=== PATIENT | female | born 1995 | race Caucasian/White ===

== ENCOUNTER 2022-10-17 12:05 | Emergency (ER) | payer OTHER, SELFPAY ==
[2022-10-17] VITALS (10 sets, daily range): BP systolic 143; BP diastolic 97; PULSE 89–100; RESP 10–30; TEMP 36.7; O2SAT 96–100; BMI 29.5
--- NOTE | 2022-10-17 12:18 | ED_ITS ---
HPI - Seizure General Chief Complaint: Seizure Stated Complaint: SEIZURE @ WORK Time Seen by Provider: 10/17/22 12:10 Source: patient Mode of arrival: ambulance Limitations: no limitations History of Present Illness HPI Narrative: patient was brought to the emergency room from her place of employment. Coworkers described seizure type activity. She was incontinent of urine there. She has no recall of the event. She doesn't remember going to work today and his struggles trying to remember what she did yesterday or even over the weekend. She does remember October 10 celebration. She does not have a family doctor. She states her works at a local [employer]. She takes something [id number] from [employer] for gas and bloating but is otherwise not on any medications that she knows of. She does not have a headache. Does not having neck pain. 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 She has no other medical problems or history that she can relate to us at this [facility]. Related Data Home Medications Medication Instructions Recorded Confirmed No Known Home Medications 10/17/22 10/17/22 Allergies Allergy/AdvReac Type Severity Reaction Status Date / Time No Known Drug Allergies Allergy Verified 10/17/22 12:12 [facility] Social History Smoking status: Current some day smoker Exam Narrative Exam Narrative: patient awake, sluggish to answer questions. Does not remember any events leading up to her going to work today. Was even sluggish about events over the last forty-eight hours. She follows all simple commands. HEENT shows head and neck to be atraumatic with no tenderness over the cervical spine. She protrudes the tongue in the midline but she has an abrasion on the front right side of the tongue consistent with traumatic biting event. Otherwise eyes ears nose and throat are normal no CSF otorrhea or rhinorrhea. I examination shows no nystagmus extraocular muscles are normal is no conjunctivitis. Chest wall is nontender as are ribs and sternum and clavicular area. Arrest during her lungs are clear no wheezes rales or rhonchi heart sounds are normal and lungs are clear with normal pulse oximetry airway was intact with no evidence of aspiration or airway obstruction. Neurological examination shows her to be moving all four extremities spontaneously. Cranial nerves II-12 are normal. There is no evidence of meningeal irritation or meningismus. No head or neck trauma. Her amnesia was described earlier. That did improve throughout her stay here and when her came in she was doing much better as far as events prior to today's seizure. Constitutional Vital Signs, click to edit/add: Last Vital Signs Temp 98.0 F 10/17/22 12:12 Pulse 100 H 10/17/22 12:12 Resp 18 10/17/22 12:12 BP 143/97 H 10/17/22 12:12 Pulse Ox 98 10/17/22 12:12 O2 Del Method Room Air 10/17/22 12:12 Course Vital Signs Vital signs: Vital Signs Temperature 98.0 F 10/17/22 12:12 Pulse Rate 100 H 10/17/22 12:12 Respiratory Rate 18 10/17/22 12:12 Blood Pressure 143/97 H 10/17/22 12:12 Pulse Oximetry 98 10/17/22 12:12 Oxygen Delivery Method Room Air 10/17/22 12:12 Temperature 98.0 F 10/17/22 12:12 Pulse Rate 100 H 10/17/22 12:12 Respiratory Rate 18 10/17/22 12:12 Blood Pressure 143/97 H 10/17/22 12:12 Pulse Oximetry 98 10/17/22 12:12 Oxygen Delivery Method Room Air 10/17/22 12:12 MDM - Seizure MDM Narrative Medical decision making narrative: patient's laboratory test shows elevated lactate levels consistent with a full-b lown grand mal seizure. Her CT scan of the head is normal. Basic chemistries are otherwise unremarkable. She does not have a primary care doctor and does not know her insurance because her purses at her place of employment nonetheless we'll call [facility] and arrange prompt follow-up 1st seizure workup for her. She's not to drive, this was explained to the and the patient and they are in agreement. She'll be given a work note for the next two days. Close observation by the Discharge Plan Discharge Chief Complaint: Seizure Clinical Impression: Generalized seizure Patient Disposition: Home, Self-Care Time of Disposition Decision: 13:30 Prescriptions / Home Meds: No Action No Known Home Medications Additional Instructions: do not drive or engage in any risk activity as discussed. Call [facility] for close follow-up. Off work today and tomorrow and try to find a family doctor for ongoing care as well Stand Alone Forms: Portal Instructions Referrals: DENNISE FOSTER [Primary Care Provider] - 1 week
--- NOTE | 2022-10-17 12:19 | ECG_ITS ---
[facility] Test Date: 2022-10-17 Pat Name: MELINA WILSON Department: Room: - Gender: Female Economic Consultant: : 1995 Requested By: [id number] Order Number: [id number] Reading MD: EVARISTO LECHUGA Measurements Intervals [place] Rate: 103 P: 55 ND: 150 QRS: 97 QRSD: 82 T: 42 QT: 340 QTc: 400 Interpretive Statements 1120 Sinus tachycardia 4068 Nonspecific Twave abnormality 7102 Moderate right axis deviation 9140 abnormal rhythm ECG No previous ECG available for comparison Electronically Signed On 10-18-2022 6:32:35 EDT by EVARISTO LECHUGA
[2022-10-17 12:32] LABS: Basophils Percent Auto 0.3 % (0.2-2.0); Eosinophils Absolute Auto 0.1 10^3/uL (0.0-0.7); Eosinophils Percent Auto 0.9 % (0.9-7.0); Hematocrit 38.5 % (36.0-48.0); Immature Granulocytes Abs Auto 0.02 10^3/uL (0.00-0.03); Immature Granulocytes Pct Auto 0.3 % (0.0-0.5); Lymphocytes Absolute Auto 1.9 10^3/uL (1.2-3.8); Lymphocytes Percent Auto 30.6 % (20.5-60.0); Mean Corpuscular HGB Conc 33.8 g/dL (29.9-35.2); Mean Corpuscular Hemoglobin 29.3 pg (26.7-34.0); Mean Corpuscular Volume 86.9 fL (81.0-99.0); Mean Platelet Volume 9.5 fL (9.5-13.5); Monocytes Absolute Auto 0.4 10^3/uL (0.3-0.8); Monocytes Percent Auto 6.1 % (1.7-12.0); Neutrophils Absolute Auto 3.9 10^3/uL (1.4-6.5); Neutrophils Percent Auto 61.8 % (43.0-75.0); Platelet Count 281 10^3/uL (150-450); Red Blood Count 4.43 10^6/uL (4.20-5.40); Red Cell Distribution Width 12.7 % (11.0-15.0); White Blood Count 6.4 10^3/uL (4.0-11.0)
[2022-10-17 12:37] LABS: Erythrocyte Sedimentation Rate 22 mm/hr (<=20)
[2022-10-17] MEDS: ONDANSETRON PF 4 MG/2 ML VIAL IV (12:40)
[2022-10-17] MEDS: 0.9 % SODIUM CHLORIDE 1,000 ML 100 ML IV (12:41)
--- NOTE | 2022-10-17 12:45 | CT_ITS ---
The [address] [address] Patient Name: MELINA WILSON MRN: [id number] date: 1995 Sex: F Assigned Patient Location: ER Current Patient Location: .MAIN Accession/Order Number: [id number] Exam Date: 10/17/2022 12:35 Report Date: 10/17/2022 13:18 At the request of: BHANU PAGE Procedure: CT head/brain wo con EXAMINATION: CT head/brain wo con HISTORY: seizure COMPARISON: No relevant comparison available. TECHNIQUE: Axial CT images were obtained without IV contrast. Dose reduction techniques were achieved by using automated exposure control and/or adjustment of mA and/or kV according to patient size and/or use of iterative reconstruction technique. FINDINGS: BRAIN: No edema, hemorrhage, mass, acute infarction, or inappropriate atrophy. CSF SPACES: No hydrocephalus, subarachnoid hemorrhage, or mass. Absence of the interventricular septum. SKULL: No fracture, mass, or other significant visible lesion. SINUSES: No significant mucosal thickening or fluid on the limited views. ORBITS: No appreciable abnormality on the limited views. OTHER: Negative CT/CT head/brain wo con IMPRESSION: 1. No intracranial hemorrhage, mass, or suspicious findings to account for patient's symptoms. Electronically authenticated by: ROCIO REAL Date: 10/17/2022 13:18
[2022-10-17 12:57] LABS: Anion Gap 20.7
[2022-10-17 13:06] LABS: Alanine Aminotransferase 20 U/L (14-59); Albumin Level 4.3 g/dL (3.4-5.0); Alkaline Phosphatase 79 U/L (46-116); Aspartate Amino Transferase 18 U/L (15-37); BUN Creatinine Ratio 13.3; Bilirubin Total 0.7 mg/dL (0.2-1.0); Calcium 9.5 mg/dL (8.5-10.1); Carbon Dioxide 20.2 mmol/L (21.0-32.0); Chloride 102 mmol/L (98-107); Estimated GFR (African America >60 (>=60); Estimated GFR (Non-African Ame >60 (>=60); Globulin 4.2 g/dL; Glucose 140 mg/dL (74-106); Potassium 3.9 mmol/L (3.5-5.1); Sodium 139 mmol/L (136-145); Thyroid Stimulating Hormone 9.952 uIU/mL (0.358-3.740); Total Protein 8.5 g/dL (6.4-8.2)
[2022-10-17 13:10] LABS: Lactate/Lactic Acid 5.4 mmol/L (0.4-2.0)
== END 2022-10-17 14:27 | disposition home or self-care (01) ==
PROVIDERS: Emergency Provider Emergency Medicine Emergency Medical Services; Family Provider Pediatrics; PCP Pediatrics
DX: R56.9 Unspecified convulsions (principal); F17.210 Nicotine dependence, cigarettes, uncomplicated
CPT/HCPCS: 36415; 70450; 80053; 83605; 84443; 85025; 85652; 86140; 93005; 96374; 99285